=== PATIENT | female | born 1995 | race Two or more races ===

== ENCOUNTER 2017-12-20 19:05 | Emergency (ER) | payer SELFPAY ==
[~2017-12-20] VITALS: Ht 165.1 cm; Wt 79.4 kg
[2017-12-20 19:43] LABS: Basophils # (auto) 0.1 uL; Basophils % (auto) 0.6 % (0.0-2.0); Eosinophils # (auto) 0.1 uL; Eosinophils % (auto) 0.8 % (0.0-7.0); Hematocrit 41.6 % (36.0-46.0); Hemoglobin 13.9 g/dL (12.2-16.2); Lymphocytes # (auto) 3.2 uL; Lymphocytes % (auto) 32.8 % (10.0-50.0); Mean Corpuscular Hemoglobin 31.1 pg (28.0-32.0); Mean Corpuscular Hgb Conc. 33.3 g/dL (32.0-36.0); Mean Corpuscular Volume 93.5 fL (80.0-100.0); Monocytes # (auto) 0.5 uL; Neutrophils # (auto) 5.9 uL; Neutrophils % (auto) 60.8 % (37.0-80.0); Platelet Count (auto) 391 10^3/uL (140-450); Red Blood Cells 4.45 10^6/uL (4.0-5.20); Red Cell Distribution Width 12.8 % (11.8-14.3); White Blood Cell 9.7 10^3/uL (4.4-10.8)
[2017-12-20 19:55] LABS: Urine Bacteria NONE SEEN /hpf (None Seen); Urine Blood Negative /uL (Negative); Urine Mucus FEW (None Seen); Urine Specific Gravity 1.009 (1.001-1.035); Urine WBC 2 /hpf (0 - 5)
[2017-12-20 20:00] LABS: Alanine Aminotransferase 33 U/L (13-56); Albumin 3.8 g/dL (3.4-5.0); Anion Gap 10 (5-15); Aspartate Aminotransferase 17 U/L (15-37); BUN/Creatinine Ratio 21.7; Blood Urea Nitrogen 15 mg/dL (7-18); Calcium 9.1 mg/dL (8.5-10.1); Carbon Dioxide 26 mmol/L (21-32); Chloride 104 mmol/L (98-107); GFR African American 136 mL/min; GFR Non-African American 112 mL/min; Glucose 93 mg/dL (74-106); Sodium 140 mmol/L (136-145)
[2017-12-20 20:05] LABS: Alkaline Phosphatase 59 U/L (45-117); Bilirubin, Total 0.2 mg/dL (0.2-1.0); Total Protein 8.5 g/dL (6.4-8.2)
[2017-12-20 23:03] VITALS: BP 113/62
== END 2017-12-21 00:40 | disposition home or self-care (01) ==
LOC: ER 19:05
DX: F41.9 Anxiety disorder, unspecified (principal); Z88.0 Allergy status to penicillin
CPT/HCPCS: 36415; 71046; 80053; 81001; 81025; 84484; 85025; 85379; 93005

== ENCOUNTER 2018-08-28 19:20 | Inpatient (IN) | payer BC ==
[~2018-08-28] VITALS: Ht 165.1 cm; Wt 86.4 kg
[2018-08-28 22:43] LABS: Alanine Aminotransferase 41 U/L (13-56); Albumin 3.9 g/dL (3.4-5.0); Anion Gap 8 (5-15); Aspartate Aminotransferase 16 U/L (15-37); BUN/Creatinine Ratio 13.3; Blood Urea Nitrogen 14 mg/dL (7-18); Calcium 8.6 mg/dL (8.5-10.1); Carbon Dioxide 24 mmol/L (21-32); Chloride 102 mmol/L (98-107); Glucose 118 mg/dL (74-106); Lipase 92 U/L (73-393); Sodium 134 mmol/L (136-145)
[2018-08-28 22:46] LABS: Alkaline Phosphatase 68 U/L (45-117); Bilirubin, Total 0.5 mg/dL (0.2-1.0); GFR African American > 60 mL/min; GFR Non-African American > 60 mL/min; Total Protein 8.5 g/dL (6.4-8.2)
[2018-08-28 22:53] LABS: Basophils # (auto) 0 uL; Basophils % (auto) 0.2 % (0.0-2.0); Eosinophils # (auto) 0 uL; Hematocrit 41.9 % (36.0-46.0); Hemoglobin 14.2 g/dL (12.2-16.2); Lymphocytes # (auto) 0.9 uL; Mean Corpuscular Hemoglobin 31.5 pg (28.0-32.0); Mean Corpuscular Hgb Conc. 33.9 g/dL (32.0-36.0); Mean Corpuscular Volume 92.9 fL (80.0-100.0); Monocytes # (auto) 0.5 uL; Monocytes % (auto) 2.5 % (0.0-12.0); Neutrophils # (auto) 17.1 uL; Neutrophils % (auto) 92.3 % (37.0-80.0); Platelet Count (auto) 376 10^3/uL (140-450); Red Blood Cells 4.51 10^6/uL (4.0-5.20); Red Cell Distribution Width 13.4 % (11.8-14.3); White Blood Cell 18.5 10^3/uL (4.4-10.8)
[2018-08-29] VITALS (7 sets, daily range): BP systolic 96–101; BP diastolic 48–56
[2018-08-29] MEDS ORDERED: fentaNYL CITRATE 100 MCG/2 ML VL IV ONE (00:30)
[2018-08-29] MEDS ORDERED: KETOROLAC TROMETH 30 MG/ML 1ML VIAL IV ONE (00:30)
[2018-08-29] MEDS ORDERED: CIPROFLOXACIN 400MG/200ML 200 ML IV ONE (00:30)
[2018-08-29] MEDS ORDERED: ACETAMINOPHEN 500 MG TAB PO PRN (04:00)
[2018-08-29] MEDS ORDERED: HYDROcodone-ACET 5/325MG TAB PO PRN (04:00)
[2018-08-29] MEDS: MORPHINE SULFATE 4 MG/ML SYR/VIAL IV PRN ×3 (04:42→18:29)
[2018-08-29] MEDS: ONDANSETRON HCL 4 MG/2 ML VIAL IV PRN ×2 (04:42→10:19)
[2018-08-29] MEDS: SODIUM CHLORIDE 0.9% 1,000 ML IV SCH ×3 (05:00→21:45)
--- NOTE | 2018-08-29 05:40 | NUR ---
[facility]. Patient oriented to Rosana rachel RN, unit, room, bed, and unit policies regarding patient care and visiting hours. Patient weighed by bedscale and encouraged to call if they need something. All questions and concerns addressed, patient verbalized understanding.
--- NOTE | 2018-08-29 07:00 | NUR ---
Opening Shift Note Assumed care of patient, awake and alert. No S/S of distress/SOB. Pain reported to left flank area. Informed patient about her pain management options. Instructed on POC and to call for assist PRN, will continue to monitor for changes Q1hr and PRN.
--- NOTE | 2018-08-29 07:09 | NUR ---
CLOSING NOTE REPORT ENDORSED TO DAY SHIFT PATIENT IS RESTING IN BED, NO S/S OF DISTRESS NOTED CALL LIGHT WITHIN REACH
[2018-08-29 07:32] LABS: Basophils # (auto) 0.1 uL; Basophils % (auto) 0.5 % (0.0-2.0); Eosinophils # (auto) 0 uL; Eosinophils % (auto) 0.1 % (0.0-7.0); Hematocrit 36.7 % (36.0-46.0); Hemoglobin 12.5 g/dL (12.2-16.2); Lymphocytes # (auto) 2.7 uL; Lymphocytes % (auto) 20.9 % (10.0-50.0); Mean Corpuscular Hemoglobin 31.6 pg (28.0-32.0); Monocytes % (auto) 7.5 % (0.0-12.0); Neutrophils # (auto) 9.1 uL; Nucleated Red Blood Cells % 0.1 %; Platelet Count (auto) 326 10^3/uL (140-450); Red Blood Cells 3.95 10^6/uL (4.0-5.20); Red Cell Distribution Width 13.6 % (11.8-14.3); White Blood Cell 12.8 10^3/uL (4.4-10.8)
[2018-08-29 07:50] LABS: Anion Gap 6 (5-15); BUN/Creatinine Ratio 18.8; Blood Urea Nitrogen 16 mg/dL (7-18); Calcium 8.1 mg/dL (8.5-10.1); Carbon Dioxide 26 mmol/L (21-32); Chloride 105 mmol/L (98-107); GFR African American > 60 mL/min; GFR Non-African American > 60 mL/min; Glucose 99 mg/dL (74-106); Potassium 3.7 mmol/L (3.5-5.1); Sodium 137 mmol/L (136-145)
[2018-08-29 10:24] LABS: Urine Bacteria MANY /hpf (None Seen); Urine Blood 3+ /uL (Negative); Urine Mucus FEW (None Seen); Urine Specific Gravity 1.008 (1.001-1.035); Urine WBC 11 /hpf (0 - 5)
[2018-08-29] MEDS: LEVOFLOXACIN 500MG 100 ML IV SCH (14:14)
[2018-08-29] MEDS: TAMSULOSIN HYDROCHLORIDE 0.4 MG CAP PO SCH (18:20)
--- NOTE | 2018-08-29 19:30 | NUR ---
OPENING NOTE REPORT RECEIVED FROM DAY SHIFT RN PATIENT IS A/OX4, ABLE TO STATE ALL NEEDS. NO S/S OF DISTRESS AT THIS GIVEN TIME. POC DISCUSSED FOR TONIGHT INCLUDING MEDICATIONS/SIDE EFFECTS. PT AWARE THAT SHE IS TO USE THE "HAT" IN THE TOILET SO THAT URINE CAN BE STRAINED FOR STONES, PT VERBALIZED UNDERSTANDING. ALL QUESTIONS/CONCERNS ANSWERED. CALL LIGHT WITHIN REACH. WILL MONITOR Q1H PRN THROUGHOUT SHIFT.
--- NOTE | 2018-08-30 04:15 | NUR ---
IV removal TO LEFT AC DUE TO LEAKING IV DC'd with clean sterile technique, catheter fully intact. Pressure dressing applied to site. Patient tolerated well.
--- NOTE | 2018-08-30 04:30 | NUR ---
IV insertion IV access obtained, via clean sterile technique by inserting 20 gauge catheter at LEFT FOREARM after 2 attempt(s). IV secured properly. No trauma to site. Patient tolerated well.
[2018-08-30] MEDS: MORPHINE SULFATE 4 MG/ML SYR/VIAL IV PRN (05:15)
[2018-08-30] MEDS: SODIUM CHLORIDE 0.9% 1,000 ML IV SCH ×3 (05:15→21:00)
[2018-08-30 05:20] LABS: Basophils # (auto) 0 uL; Basophils % (auto) 0.5 % (0.0-2.0); Eosinophils # (auto) 0.1 uL; Eosinophils % (auto) 0.7 % (0.0-7.0); Hematocrit 37.3 % (36.0-46.0); Hemoglobin 12.5 g/dL (12.2-16.2); Lymphocytes # (auto) 3.3 uL; Lymphocytes % (auto) 45.1 % (10.0-50.0); Mean Corpuscular Hemoglobin 31.6 pg (28.0-32.0); Mean Corpuscular Hgb Conc. 33.5 g/dL (32.0-36.0); Mean Corpuscular Volume 94.4 fL (80.0-100.0); Monocytes # (auto) 0.4 uL; Neutrophils # (auto) 3.5 uL; Neutrophils % (auto) 47.7 % (37.0-80.0); Platelet Count (auto) 317 10^3/uL (140-450); Red Blood Cells 3.95 10^6/uL (4.0-5.20); Red Cell Distribution Width 13.2 % (11.8-14.3); White Blood Cell 7.4 10^3/uL (4.4-10.8)
[2018-08-30 05:42] LABS: Chloride 111 mmol/L (98-107); Potassium 4.3 mmol/L (3.5-5.1); Sodium 140 mmol/L (136-145)
[2018-08-30 05:44] VITALS: BP 106/66
[2018-08-30 05:52] LABS: Alanine Aminotransferase 26 U/L (13-56); Alkaline Phosphatase 53 U/L (45-117); Anion Gap 3 (5-15); Aspartate Aminotransferase 9 U/L (15-37); Bilirubin, Total 0.3 mg/dL (0.2-1.0); Blood Urea Nitrogen 18 mg/dL (7-18); Calcium 7.8 mg/dL (8.5-10.1); Carbon Dioxide 26 mmol/L (21-32); GFR African American > 60 mL/min; GFR Non-African American > 60 mL/min; Glucose 88 mg/dL (74-106); Total Protein 6.7 g/dL (6.4-8.2)
--- NOTE | 2018-08-30 07:22 | NUR ---
CLOSING NOTE REPORT ENDORSED TO DAY SHIFT RN PT SLEEPING. NO S/S OF DISTRESS CALL LIGHT WITHIN REACH
--- NOTE | 2018-08-30 07:30 | NUR ---
Opening Shift Note Assumed care of patient, awake and alert. No S/S of distress/SOB. Pain and discomfort reported to the left flank. This pain has been going on for days. The patient recently received some pain medication so we are waiting for the medicine to take effect. Instructed on POC and to call for assist PRN, will continue to monitor for changes Q1hr and PRN.
[2018-08-30 08:00] VITALS: BP 96/57
[2018-08-30 09:00] VITALS: BP 97/58
[2018-08-30] MEDS ORDERED: KETOROLAC TROMETH 30 MG/ML 1ML VIAL IV PRN (11:30)
--- NOTE | 2018-08-30 12:18 | NUR ---
Urology consult recalled. No one answered the phone at the urology group. A message was left with the group concerning the patient's pending consult. Will await for urologist to reply or show up here at the hospital for the consult.
[2018-08-30] MEDS: LEVOFLOXACIN 500MG 100 ML IV SCH (12:56)
[2018-08-30 13:00] VITALS: BP 100/60
[2018-08-30 17:00] VITALS: BP 108/65
[2018-08-30] MEDS: TAMSULOSIN HYDROCHLORIDE 0.4 MG CAP PO SCH (18:09)
[2018-08-30 21:50] VITALS: BP 109/67
[2018-08-31 05:00] VITALS: BP 109/55
[2018-08-31] MEDS: SODIUM CHLORIDE 0.9% 1,000 ML IV SCH ×3 (05:27→20:20)
[2018-08-31 06:32] LABS: Basophils # (auto) 0 uL; Basophils % (auto) 0.5 % (0.0-2.0); Eosinophils # (auto) 0.1 uL; Eosinophils % (auto) 0.9 % (0.0-7.0); Hematocrit 36.9 % (36.0-46.0); Hemoglobin 12.7 g/dL (12.2-16.2); Lymphocytes # (auto) 2.9 uL; Lymphocytes % (auto) 32.9 % (10.0-50.0); Mean Corpuscular Hemoglobin 32.1 pg (28.0-32.0); Mean Corpuscular Hgb Conc. 34.3 g/dL (32.0-36.0); Mean Corpuscular Volume 93.5 fL (80.0-100.0); Monocytes # (auto) 0.6 uL; Monocytes % (auto) 6.9 % (0.0-12.0); Neutrophils # (auto) 5.2 uL; Neutrophils % (auto) 58.8 % (37.0-80.0); Nucleated Red Blood Cells % 0.1 %; Platelet Count (auto) 312 10^3/uL (140-450); Red Blood Cells 3.95 10^6/uL (4.0-5.20); White Blood Cell 8.9 10^3/uL (4.4-10.8)
[2018-08-31 06:46] LABS: Anion Gap 5 (5-15); Blood Urea Nitrogen 16 mg/dL (7-18); Calcium 8.3 mg/dL (8.5-10.1); Carbon Dioxide 26 mmol/L (21-32); Chloride 109 mmol/L (98-107); Glucose 95 mg/dL (74-106); Potassium 3.8 mmol/L (3.5-5.1); Sodium 140 mmol/L (136-145)
[2018-08-31 06:53] LABS: Alanine Aminotransferase 32 U/L (13-56); Alkaline Phosphatase 51 U/L (45-117); Aspartate Aminotransferase 15 U/L (15-37); BUN/Creatinine Ratio 22.9; Bilirubin, Total 0.4 mg/dL (0.2-1.0); GFR African American > 60 mL/min; GFR Non-African American > 60 mL/min; Total Protein 6.7 g/dL (6.4-8.2)
[2018-08-31 09:00] VITALS: BP 98/61
--- NOTE | 2018-08-31 09:04 | NUR ---
New IV line started on the right wrist, 22 gauge, in one attempt, intact and patent. Previous IV line on the left forearm unable to flush, patient complained it hurts, IV line on the left forearm removed, IV catheter intact, pressure dressing applied.
[2018-08-31] MEDS: ONDANSETRON HCL 4 MG/2 ML VIAL IV PRN ×2 (09:12→17:46)
--- NOTE | 2018-08-31 09:12 | NUR ---
Zofran IV given as ordered for nausea.
--- NOTE | 2018-08-31 09:25 | NUR ---
Patient transferred via bed to Pre Op/Surgery. Patient awake, oriented x4, no acute distress noted. IV line intact and patent. 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
[2018-08-31 09:53] LABS: INR 0.98 (0.9-1.15); Partial Thromboplastin Time 27.1 sec (23.78-33.04); Prothrombin Time 10.5 sec (9.27-12.13)
[2018-08-31] MEDS ORDERED: MIDAZOLAM HCL 1MG/1ML-2 ML VIAL ONE (11:06)
[2018-08-31] MEDS ORDERED: fentaNYL CITRATE 100 MCG/2 ML VL ONE (11:06)
[2018-08-31] MEDS ORDERED: MEPERIDINE HCL (50 MG/ML) 1 ML VIAL ONE (11:07)
[2018-08-31] MEDS ORDERED: ceFAZolin 1GM/50ML 50 ML IV ONE (11:15)
[2018-08-31] MEDS ORDERED: CIPROFLOXACIN 400MG/200ML 200 ML IV ONE (11:31)
[2018-08-31] MEDS ORDERED: IOHEXOL 300 MG/ML 100ML BOTTLE IJ ONE (12:05)
[2018-08-31] MEDS ORDERED: DEXAMETHASONE SOD PHOS 10MG/1ML VIAL INJ ONE (12:33)
[2018-08-31] MEDS ORDERED: PROPOFOL 10 MG/ML 20 ML IV ONE (12:33)
--- NOTE | 2018-08-31 12:53 | NUR ---
Buster Asencio came over. made aware patient at OR/Surgery for Cystoscopy as per Dante Hayes. Dr. Myers planned to discharge the patient tomorrow.
[2018-08-31] MEDS ORDERED: ePHEDrine SULFATE 50 MG/ML AMP IV PRN (13:00)
[2018-08-31] MEDS ORDERED: ONDANSETRON HCL 4 MG/2 ML VIAL IV ONE (13:00)
[2018-08-31] MEDS ORDERED: MIDAZOLAM HCL 1MG/1ML-2 ML VIAL IV PRN (13:00)
[2018-08-31] MEDS ORDERED: LABETALOL HCL 5 MG/ML 4ML SYRINGE IV PRN (13:00)
[2018-08-31] MEDS ORDERED: HYDROmorphone HCL 2 MG/ML VL IV PRN (13:00)
[2018-08-31] MEDS ORDERED: MORPHINE SULFATE 10 MG/ML INJ 1ML SDV IV PRN (13:00)
[2018-08-31] MEDS ORDERED: KETOROLAC TROMETH 30 MG/ML 1ML VIAL IV ONE (13:00)
[2018-08-31] MEDS ORDERED: MORPHINE SULFATE 10 MG/ML INJ 1ML SDV IV ONE (14:00)
--- NOTE | 2018-08-31 14:25 | NUR ---
Received a call from PACU that patient had Lithotripsy with stent placement on the left side, patient to be back on Regular diet.
--- NOTE | 2018-08-31 14:45 | NUR ---
Patient back to room post-Lithotripsy.
--- NOTE | 2018-08-31 14:45 | NUR ---
Received patient with new IV line, 22 gauge on the left wrist. Patient requested to have her other IV line on the right wrist, 22 gauge, be removed.
[2018-08-31] MEDS: LEVOFLOXACIN 500MG 100 ML IV SCH (14:59)
--- NOTE | 2018-08-31 15:08 | NUR ---
Patient been in and out of the bathroom at least four times. Patient is ambulatory.
--- NOTE | 2018-08-31 15:10 | NUR ---
Called Pharmacy to verify Toradol IV Q4. Addendum: 08/31/18 at 1543 by Bing Singletary RN WRONG TIME
--- NOTE | 2018-08-31 15:15 | NUR ---
Called Buster Asencio that patient is in severe pain, patient only on Tylenol. Dr. Myers ordered Toradol IV 15 mg Q4 PRN for pain.
--- NOTE | 2018-08-31 15:20 | NUR ---
Called Pharmacy to verify Toradol IV 15 mg Q4.
[2018-08-31] MEDS ORDERED: KETOROLAC TROMETH 30 MG/ML 1ML VIAL IV PRN (15:30)
[2018-08-31] MEDS: KETOROLAC TROMETH 30 MG/ML 1ML VIAL IV PRN ×2 (15:41→20:06)
--- NOTE | 2018-08-31 15:41 | NUR ---
Toradol IVP 15 mg given as ordered for pain.
[2018-08-31 17:18] VITALS: BP 108/61
[2018-08-31] MEDS: TAMSULOSIN HYDROCHLORIDE 0.4 MG CAP PO SCH (17:38)
--- NOTE | 2018-08-31 17:46 | NUR ---
Zofran IVP given for nausea as ordered.
[2018-08-31 20:00] VITALS: BP 105/59
[2018-08-31 22:00] VITALS: BP 105/59
[2018-09-01] MEDS: SODIUM CHLORIDE 0.9% 1,000 ML IV SCH ×2 (05:00→11:50)
[2018-09-01 05:31] VITALS: BP 103/61
[2018-09-01] MEDS: KETOROLAC TROMETH 30 MG/ML 1ML VIAL IV PRN ×2 (07:02→11:46)
[2018-09-01 07:28] LABS: Basophils # (auto) 0 uL; Basophils % (auto) 0.1 % (0.0-2.0); Eosinophils # (auto) 0 uL; Hematocrit 38.4 % (36.0-46.0); Hemoglobin 12.9 g/dL (12.2-16.2); Lymphocytes # (auto) 1.5 uL; Lymphocytes % (auto) 11.3 % (10.0-50.0); Mean Corpuscular Hemoglobin 31.6 pg (28.0-32.0); Mean Corpuscular Hgb Conc. 33.7 g/dL (32.0-36.0); Mean Corpuscular Volume 93.8 fL (80.0-100.0); Monocytes # (auto) 0.6 uL; Monocytes % (auto) 4.3 % (0.0-12.0); Neutrophils # (auto) 11.5 uL; Neutrophils % (auto) 84.3 % (37.0-80.0); Platelet Count (auto) 354 10^3/uL (140-450); White Blood Cell 13.6 10^3/uL (4.4-10.8)
[2018-09-01 07:44] LABS: Anion Gap 5 (5-15); Blood Urea Nitrogen 19 mg/dL (7-18); Calcium 8.7 mg/dL (8.5-10.1); Carbon Dioxide 27 mmol/L (21-32); Chloride 106 mmol/L (98-107); Glucose 113 mg/dL (74-106); Potassium 3.9 mmol/L (3.5-5.1); Sodium 138 mmol/L (136-145)
[2018-09-01 07:47] LABS: Alanine Aminotransferase 34 U/L (13-56); Albumin 3.3 g/dL (3.4-5.0); Alkaline Phosphatase 64 U/L (45-117); Aspartate Aminotransferase 15 U/L (15-37); BUN/Creatinine Ratio 25.7; Bilirubin, Total 0.3 mg/dL (0.2-1.0); GFR African American > 60 mL/min; GFR Non-African American > 60 mL/min; Total Protein 7.3 g/dL (6.4-8.2)
--- NOTE | 2018-09-01 08:10 | NUR ---
Opening Shift Note Assumed care of patient, awake and alert and oriented x4. No S/S of distress/SOB. C/O abdominal pain, instructed on pain medications and to strain all urine. Instructed on POC and to call for assist PRN, will continue to monitor for changes.
[2018-09-01 09:10] VITALS: BP 149/87
[2018-09-01] MEDS: ONDANSETRON HCL 4 MG/2 ML VIAL IV PRN (11:46)
--- NOTE | 2018-09-01 12:20 | NUR ---
Dr Myers at bedside.
[2018-09-01 12:36] VITALS: BP 111/58
[2018-09-01] MEDS: LEVOFLOXACIN 500MG 100 ML IV SCH (13:27)
--- NOTE | 2018-09-01 16:00 | NUR ---
Discharge instructions given as ordered. Encourage to follow up with PMD and with [facility] urologist as instructed. All questions and concerns addressed. Patient verbalized understanding. Medication reconciliation form completed and copy given to patient. Home medications held in Pharmacy returned to patient. IV removed with catheter intact, pressure dressing applied. Patient taken to vehicle via wheelchair with all personal belongings, accompanied by staff and family member. No distress noted at time of departure.
== END 2018-09-01 16:00 | disposition home or self-care (01) | DRG 854 ==
LOC: ER 19:20 → OVERFLOW 08-29 04:14 → WEST WING 08-29 05:23
PROVIDERS: ADMIT Nurse Practitioner Family; ATTEND Family Medicine
PROC: 0TF78ZZ Fragmentation in Left Ureter, Via Natural or Artificial Opening Endoscopic (ICD-10-PCS; principal; 2018-08-31 11:55)
PROC: 0T778DZ Dilation of Left Ureter with Intraluminal Device, Via Natural or Artificial Opening Endoscopic (ICD-10-PCS; 2018-08-31 11:55)
DX: A41.9 Sepsis, unspecified organism (principal); N13.6 Pyonephrosis; E66.9 Obesity, unspecified; N21.1 Calculus in urethra; F41.9 Anxiety disorder, unspecified; I95.9 Hypotension, unspecified; Z83.3 Family history of diabetes mellitus; Z88.0 Allergy status to penicillin; Z68.31 Body mass index [BMI] 31.0-31.9, adult
CPT/HCPCS: 36415; 74018; 74176; 76000; 80048; 80053; 81001; 83605; 83690; 84702; 85025; 85610; 85730; 87040; 87086; 96374; 96375; G0378; J0690; J1100; J1885; J1956; J2250; J2405; J2704

== ENCOUNTER → 2018-09-24 | Day surgery (SDC) | payer BC ==
[2018-09-21 09:25] LABS: Basophils # (auto) 0.1 uL; Basophils % (auto) 0.6 % (0.0-2.0); Eosinophils # (auto) 0.2 uL; Eosinophils % (auto) 2.4 % (0.0-7.0); Hematocrit 40.6 % (36.0-46.0); Hemoglobin 13.5 g/dL (12.2-16.2); Lymphocytes # (auto) 2.8 uL; Lymphocytes % (auto) 32.1 % (10.0-50.0); Mean Corpuscular Hemoglobin 31.1 pg (28.0-32.0); Mean Corpuscular Hgb Conc. 33.3 g/dL (32.0-36.0); Mean Corpuscular Volume 93.6 fL (80.0-100.0); Monocytes # (auto) 0.5 uL; Neutrophils # (auto) 5.1 uL; Neutrophils % (auto) 58.9 % (37.0-80.0); Nucleated Red Blood Cells % 0.1 %; Platelet Count (auto) 378 10^3/uL (140-450); Red Blood Cells 4.34 10^6/uL (4.0-5.20); Red Cell Distribution Width 13.5 % (11.8-14.3); White Blood Cell 8.7 10^3/uL (4.4-10.8)
[2018-09-21 09:30] LABS: Urine Bacteria NONE SEEN /hpf (None Seen); Urine Blood 2+ /uL (Negative); Urine Mucus FEW (None Seen); Urine Specific Gravity 1.021 (1.001-1.035); Urine WBC 12 /hpf (0 - 5)
[2018-09-21 09:35] LABS: Albumin 3.5 g/dL (3.4-5.0); Calcium 8.7 mg/dL (8.5-10.1); Potassium 3.7 mmol/L (3.5-5.1)
[2018-09-21 09:38] LABS: BUN/Creatinine Ratio 21.1; Bilirubin, Total 0.2 mg/dL (0.2-1.0); Total Protein 7.5 g/dL (6.4-8.2)
[2018-09-21 09:56] LABS: INR 0.93 (0.9-1.15); Partial Thromboplastin Time 27.3 sec (23.78-33.04)
[~2018-09-24] VITALS: Ht 165.1 cm; Wt 81.6 kg
[~2018-09-24] MED LIST: CIPROFLOXACIN 400MG/200ML 200 ML IV ONE; HYDROmorphone HCL 2 MG/ML VL IV PRN; IOHEXOL 300 MG/ML 100ML BOTTLE IJ ONE; LIDOCAINE 1% INJ PF 5ML AMP ONE; METOCLOPRAMIDE HCL 5MG/ml INJ 2ml VIAL ONE; MIDAZOLAM HCL 1MG/1ML-2 ML VIAL ONE; NALOXONE HCL 0.4 MG/ML VIAL IV PRN; ONDANSETRON HCL 4 MG/2 ML VIAL IV ONE; PROPOFOL 10 MG/ML 20 ML IV ONE; ceFAZolin 1GM/50ML 50 ML IV ONE; diphenhdrAMINE HCL 50 MG/1 ML VL ONE; fentaNYL CITRATE 100 MCG/2 ML VL ONE
[2018-09-24] MEDS: HYDROmorphone HCL 2 MG/ML VL IV PRN ×2 (09:19→09:39)
[2018-09-24 09:58] VITALS: BP 119/70
== END | disposition home or self-care (01) ==
LOC: SUR 06:33
PROVIDERS: ATTEND Urology
DX: N20.0 Calculus of kidney (principal); N13.39 Other hydronephrosis; E66.9 Obesity, unspecified; Z68.30 Body mass index [BMI] 30.0-30.9, adult; Z88.0 Allergy status to penicillin; Z95.1 Presence of aortocoronary bypass graft; Z98.890 Other specified postprocedural states
CPT/HCPCS: 36415; 52310; 80053; 81001; 84702; 85025; 85610; 85730; C1769; J0690; J0744; J1170; J1200; J2250; J2704; J2765; J3010; J7030; Q9967

== ENCOUNTER 2019-05-27 13:10 | Emergency (ER) | payer BC ==
[~2019-05-27] VITALS: Ht 165.1 cm; Wt 79.4 kg
[2019-05-27 14:42] LABS: Urine Bacteria FEW /hpf (None Seen); Urine Blood 1+ /uL (Negative); Urine Mucus FEW (None Seen); Urine Specific Gravity 1.028 (1.001-1.035); Urine WBC 105 /hpf (0 - 5)
[2019-05-27 15:43] VITALS: BP 105/61
[2019-05-27] MEDS ORDERED: SODIUM CHLORIDE 0.9% 1,000 ML IV ONE (15:47)
[2019-05-27] MEDS ORDERED: TAMSULOSIN HYDROCHLORIDE 0.4 MG CAP PO ONE (16:00)
== END 2019-05-27 16:46 | disposition home or self-care (01) ==
LOC: ER 13:10
DX: N39.0 Urinary tract infection, site not specified (principal); N20.0 Calculus of kidney; R31.9 Hematuria, unspecified; Z87.442 Personal history of urinary calculi; Z88.0 Allergy status to penicillin
CPT/HCPCS: 74176; 81001; 81025

== ENCOUNTER 2024-10-02 18:10 | Emergency (ER) | payer BC, OTHER ==
[~2024-10-02] VITALS: Ht 165.1 cm; Wt 87.0 kg
[2024-10-02 18:47] VITALS: BP 128/78; PULSE 104; RESP 20; TEMP 99.4; O2SAT 97
[2024-10-02] MEDS: HYDROcodone-ACET 5/325MG TAB PO ONE (19:03)
[2024-10-02] MEDS: KETOROLAC TROMETH 60MG/2ML VIAL IM ONE (19:03)
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
[2024-10-02] MEDS ORDERED: TIZA-142 PO (19:57)
[2024-10-02] MEDS ORDERED: METH4PAK PO (19:57)
== END 2024-10-02 20:07 | disposition home or self-care (01) ==
LOC: ER 18:10
DX: S22.080A Wedge compression fracture of T11-T12 vertebra, initial encounter for closed fracture (principal); S13.4XXA Sprain of ligaments of cervical spine, initial encounter; S63.591A Other specified sprain of right wrist, initial encounter; Z88.0 Allergy status to penicillin; V89.2XXA Person injured in unspecified motor-vehicle accident, traffic, initial encounter; Y93.I9 Activity, other involving external motion; Y92.488 Other paved roadways as the place of occurrence of the external cause; Y99.8 Other external cause status
CPT/HCPCS: 71250; 72125; 74176; 96372; 99285; J1885